=== PATIENT | male | born 1970 | race Caucasian/White ===

== ENCOUNTER 2017-09-26 16:49 | Inpatient (IN) | payer OTHER ==
[~2017-09-26] VITALS: Ht 170.2 cm; Wt 79.4 kg
[2017-09-26] MEDS ORDERED: Z GUARD REMEDY PASTE 57 GM TUBE TOP PRN (17:00)
[2017-09-26] MEDS ORDERED: ACETAMINOPHEN 325 MG TABLET PO PRN (17:00)
[2017-09-26 17:27] VITALS: BP 123/80
[2017-09-26] MEDS ORDERED: ASPI-612 PO (17:43)
[2017-09-26] MEDS ORDERED: VALS80TA2 PO (17:43)
[2017-09-26] MEDS ORDERED: BLOO-668 IN (17:43)
[2017-09-26] MEDS ORDERED: METF500T6 PO (17:43)
[2017-09-26] MEDS ORDERED: PRAZ1CAP5 PO (17:43)
[2017-09-26] MEDS ORDERED: HYDR-3980 PO (17:43)
[2017-09-26] MEDS ORDERED: MECL12.582 PO (17:43)
[2017-09-26] MEDS ORDERED: ATOR10TA PO (17:44)
[2017-09-26] MEDS ORDERED: AMLO10TA2 PO (17:44)
[2017-09-26 20:13] VITALS: BP 125/79
[2017-09-26] MEDS: HYDROCODONE/APAP 10-325 MG TABLET PO PRN (20:40)
[2017-09-26] MEDS: ATORVASTATIN 10 MG TABLET PO SCH (21:00)
[2017-09-26] MEDS: DOCUSATE SODIUM 100 MG CAPSULE PO SCH (21:00)
[2017-09-26] MEDS: BLOOD SUGAR DIAGNOSTIC 1 EACH STRIP VI SCH (22:22)
[2017-09-26] MEDS ORDERED: PRAZOSIN HCL 1 MG CAPSULE ONE (23:01)
[2017-09-26] MEDS: PRAZOSIN HCL 1 MG CAPSULE PO SCH (23:13)
[2017-09-27] MEDS ORDERED: MECLIZINE HCL 12.5 MG TABLET PO SCH
[2017-09-27] MEDS: HYDROCODONE/APAP 10-325 MG TABLET PO PRN ×3 (04:17→23:48)
[2017-09-27] MEDS: BLOOD SUGAR DIAGNOSTIC 1 EACH STRIP VI SCH ×4 (06:48→21:16)
[2017-09-27 06:55] VITALS: BP 113/75
[2017-09-27 06:56] LABS: BASOPHILS % (AUTO) 0.5 % (0.0-2.0); EOSINOPHILS # (AUTO) 0.1 K/uL (0.0-0.7); EOSINOPHILS % (AUTO) 1.6 % (0.0-7.0); HEMATOCRIT 45.5 % (36.7-47.1); LYMPHOCYTES # (AUTO) 2.6 K/uL (20.0-40.0); LYMPHOCYTES % (AUTO) 34.6 % (20.5-51.5); MEAN CORPUSCULAR HEMOGLOBIN 22.6 uug (23.8-33.4); MEAN CORPUSCULAR HGB CONC 33 g/dL (32.5-36.3); MEAN CORPUSCULAR VOLUME 68.6 fL (73.0-96.2); MONOCYTES # (AUTO) 0.5 K/uL (2.0-10.0); MONOCYTES % (AUTO) 6.2 % (0.0-11.0); NEUTROPHILS # (AUTO) 4.2 K/uL (1.8-8.9); NEUTROPHILS % (AUTO) 57.1 % (38.5-71.5); PLATELET COUNT (AUTO) 315 K/uL (152-348); WHITE BLOOD COUNT (AUTO) 7.4 K/uL (3.6-10.2)
[2017-09-27 06:58] LABS: RED BLOOD CELL COUNT(AUTO) 6.63 MIL/uL (4.06-5.63)
[2017-09-27 07:07] LABS: CREATININE 0.8 mg/dL (0.6-1.3); MAGNESIUM 2.1 mg/dL (1.8-2.4); PHOSPHOROUS 4.2 mg/dL (2.5-4.9); POTASSIUM 3.8 mmol/L (3.5-5.1)
[2017-09-27 07:30] VITALS: BP 155/62
[2017-09-27] MEDS: METFORMIN HCL 500 MG TABLET PO SCH ×2 (08:12→17:08)
[2017-09-27] MEDS: AMLODIPINE 10 MG TABLET PO SCH (08:12)
[2017-09-27] MEDS: ASPIRIN 325 MG TABLET PO SCH (08:12)
[2017-09-27] MEDS: VALSARTAN 80 MG TABLET PO SCH (08:12)
[2017-09-27] MEDS: MECLIZINE HCL 12.5 MG TABLET PO PRN (09:47)
[2017-09-27 16:00] VITALS: BP 118/74
[2017-09-27] MEDS ORDERED: diphenhydrAMINE 25 MG CAP PO PRN (18:30)
[2017-09-27] MEDS: GABAPENTIN 100 MG CAPSULE PO SCH (19:00)
[2017-09-27 20:02] VITALS: BP 123/83
[2017-09-27] MEDS: PRAZOSIN HCL 1 MG CAPSULE PO SCH (20:52)
[2017-09-27] MEDS: DOCUSATE SODIUM 100 MG CAPSULE PO SCH (20:52)
[2017-09-27] MEDS: ATORVASTATIN 10 MG TABLET PO SCH (20:52)
[2017-09-28 05:45] VITALS: BP 129/78
[2017-09-28] MEDS: BLOOD SUGAR DIAGNOSTIC 1 EACH STRIP VI SCH ×4 (06:20→21:07)
[2017-09-28 08:00] VITALS: BP 117/78
[2017-09-28] MEDS: VALSARTAN 80 MG TABLET PO SCH (08:16)
[2017-09-28] MEDS: AMLODIPINE 10 MG TABLET PO SCH (08:16)
[2017-09-28] MEDS: GABAPENTIN 100 MG CAPSULE PO SCH (08:16)
[2017-09-28] MEDS: METFORMIN HCL 500 MG TABLET PO SCH ×2 (08:16→17:20)
[2017-09-28] MEDS: ASPIRIN 325 MG TABLET PO SCH (08:16)
[2017-09-28] MEDS: MECLIZINE HCL 12.5 MG TABLET PO PRN (08:18)
[2017-09-28] MEDS: FLUOXETINE HCL 20 MG CAPSULE PO SCH (13:55)
[2017-09-28] MEDS: ACETAMINOPHEN 325 MG TABLET PO SCH ×2 (13:55→21:05)
[2017-09-28 16:00] VITALS: BP 110/72
[2017-09-28 19:30] VITALS: BP 113/76
[2017-09-28] MEDS: DOCUSATE SODIUM 100 MG CAPSULE PO SCH (21:05)
[2017-09-28] MEDS: ATORVASTATIN 10 MG TABLET PO SCH (21:05)
[2017-09-28] MEDS: PRAZOSIN HCL 1 MG CAPSULE PO SCH (21:07)
[2017-09-29] MEDS: BLOOD SUGAR DIAGNOSTIC 1 EACH STRIP VI SCH ×4 (06:15→21:00)
[2017-09-29 06:31] VITALS: BP 130/82
[2017-09-29 08:00] VITALS: BP 122/73
[2017-09-29] MEDS: FLUOXETINE HCL 20 MG CAPSULE PO SCH (08:13)
[2017-09-29] MEDS: ASPIRIN 325 MG TABLET PO SCH (08:13)
[2017-09-29] MEDS: VALSARTAN 80 MG TABLET PO SCH (08:13)
[2017-09-29] MEDS: METFORMIN HCL 500 MG TABLET PO SCH ×2 (08:13→17:21)
[2017-09-29] MEDS: AMLODIPINE 10 MG TABLET PO SCH (08:13)
[2017-09-29] MEDS: ACETAMINOPHEN 325 MG TABLET PO SCH ×2 (08:13→21:56)
[2017-09-29 16:16] VITALS: BP 118/73
[2017-09-29] MEDS: HYDROCODONE/APAP 10-325 MG TABLET PO PRN (16:29)
[2017-09-29 19:30] VITALS: BP 107/74
[2017-09-29] MEDS: DOCUSATE SODIUM 100 MG CAPSULE PO SCH (21:00)
[2017-09-29] MEDS: PRAZOSIN HCL 1 MG CAPSULE PO SCH (21:00)
[2017-09-29] MEDS: ATORVASTATIN 10 MG TABLET PO SCH (21:56)
[2017-09-30 06:28] VITALS: BP 131/83
[2017-09-30] MEDS: BLOOD SUGAR DIAGNOSTIC 1 EACH STRIP VI SCH ×4 (06:50→21:34)
[2017-09-30 08:00] VITALS: BP 130/89
[2017-09-30] MEDS: ASPIRIN 325 MG TABLET PO SCH (08:16)
[2017-09-30] MEDS: METFORMIN HCL 500 MG TABLET PO SCH ×2 (08:16→17:19)
[2017-09-30] MEDS: FLUOXETINE HCL 20 MG CAPSULE PO SCH (08:17)
[2017-09-30] MEDS: AMLODIPINE 10 MG TABLET PO SCH (08:17)
[2017-09-30] MEDS: ACETAMINOPHEN 325 MG TABLET PO SCH ×2 (08:17→21:34)
[2017-09-30] MEDS: VALSARTAN 80 MG TABLET PO SCH (08:18)
[2017-09-30 16:08] VITALS: BP 118/75
[2017-09-30 19:32] VITALS: BP 122/78
[2017-09-30] MEDS: DOCUSATE SODIUM 100 MG CAPSULE PO SCH (21:33)
[2017-09-30] MEDS: ATORVASTATIN 10 MG TABLET PO SCH (21:34)
[2017-09-30] MEDS: PRAZOSIN HCL 1 MG CAPSULE PO SCH (21:34)
[2017-09-30] MEDS: ZOLPIDEM 5 MG TABLET PO PRN (21:35)
[2017-10-01 05:56] VITALS: BP 130/79
[2017-10-01] MEDS: BLOOD SUGAR DIAGNOSTIC 1 EACH STRIP VI SCH ×4 (06:18→20:30)
[2017-10-01] MEDS: ACETAMINOPHEN 325 MG TABLET PO SCH ×2 (08:12→20:25)
[2017-10-01] MEDS: VALSARTAN 80 MG TABLET PO SCH (08:12)
[2017-10-01] MEDS: AMLODIPINE 10 MG TABLET PO SCH (08:13)
[2017-10-01] MEDS: ASPIRIN 325 MG TABLET PO SCH (08:13)
[2017-10-01] MEDS: FLUOXETINE HCL 20 MG CAPSULE PO SCH (08:13)
[2017-10-01] MEDS: METFORMIN HCL 500 MG TABLET PO SCH ×2 (08:13→17:11)
[2017-10-01] MEDS: BISACODYL 5 MG TABLET.DR PO PRN (08:13)
[2017-10-01 08:27] VITALS: BP 125/75
[2017-10-01 09:09] LABS: PTT-LA 37.2 sec (0.0-51.9); THROMBIN TIME 16.6 sec (0.0-23.0)
[2017-10-01 10:09] LABS: LUPUS INTERPRETATION Comment: (.)
[2017-10-01 19:30] VITALS: BP 135/89
[2017-10-01] MEDS: DOCUSATE SODIUM 100 MG CAPSULE PO SCH (20:25)
[2017-10-01] MEDS: PRAZOSIN HCL 1 MG CAPSULE PO SCH (20:26)
[2017-10-01] MEDS: ATORVASTATIN 10 MG TABLET PO SCH (20:26)
[2017-10-02] MEDS: BLOOD SUGAR DIAGNOSTIC 1 EACH STRIP VI SCH ×4 (06:25→20:34)
[2017-10-02] MEDS: ASPIRIN 325 MG TABLET PO SCH (08:16)
[2017-10-02] MEDS: FLUOXETINE HCL 20 MG CAPSULE PO SCH (08:16)
[2017-10-02] MEDS: ACETAMINOPHEN 325 MG TABLET PO SCH ×2 (08:16→20:34)
[2017-10-02] MEDS: AMLODIPINE 10 MG TABLET PO SCH (08:17)
[2017-10-02] MEDS: METFORMIN HCL 500 MG TABLET PO SCH ×2 (08:18→16:41)
[2017-10-02] MEDS: VALSARTAN 80 MG TABLET PO SCH (08:18)
[2017-10-02 08:34] VITALS: BP 112/73
[2017-10-02] MEDS: BISACODYL 5 MG TABLET.DR PO PRN (09:22)
[2017-10-02 15:43] VITALS: BP 114/57
[2017-10-02] MEDS ORDERED: BISACODYL 10 MG SUPP.RECT RC PRN (18:15)
[2017-10-02 20:09] VITALS: BP 132/63
[2017-10-02 20:19] VITALS: BP 119/71
[2017-10-02] MEDS: DOCUSATE SODIUM 100 MG CAPSULE PO SCH (20:34)
[2017-10-02] MEDS: ATORVASTATIN 10 MG TABLET PO SCH (20:34)
[2017-10-02] MEDS: PRAZOSIN HCL 1 MG CAPSULE PO SCH (20:35)
[2017-10-03 05:27] VITALS: BP 116/67
[2017-10-03 08:03] LABS: BASOPHILS # (AUTO) 0.1 K/uL (0.0-8.0); EOSINOPHILS # (AUTO) 0.1 K/uL (0.0-0.7); EOSINOPHILS % (AUTO) 1.4 % (0.0-7.0); HEMATOCRIT 42.2 % (36.7-47.1); HEMOGLOBIN 13.8 g/dL (12.5-16.3); LYMPHOCYTES # (AUTO) 2.8 K/uL (20.0-40.0); MEAN CORPUSCULAR HEMOGLOBIN 22.4 uug (23.8-33.4); MEAN CORPUSCULAR HGB CONC 33 g/dL (32.5-36.3); MEAN CORPUSCULAR VOLUME 68.7 fL (73.0-96.2); MONOCYTES # (AUTO) 0.5 K/uL (2.0-10.0); NEUTROPHILS # (AUTO) 3.5 K/uL (1.8-8.9); NEUTROPHILS % (AUTO) 49.6 % (38.5-71.5); PLATELET COUNT (AUTO) 279 K/uL (152-348); RED BLOOD CELL COUNT(AUTO) 6.15 MIL/uL (4.06-5.63)
[2017-10-03] MEDS: ASPIRIN 325 MG TABLET PO SCH (08:19)
[2017-10-03] MEDS: FLUOXETINE HCL 20 MG CAPSULE PO SCH (08:20)
[2017-10-03] MEDS: ACETAMINOPHEN 325 MG TABLET PO SCH ×2 (08:20→20:33)
[2017-10-03] MEDS: METFORMIN HCL 500 MG TABLET PO SCH ×2 (08:20→17:07)
[2017-10-03] MEDS: VALSARTAN 80 MG TABLET PO SCH (08:20)
[2017-10-03] MEDS: AMLODIPINE 10 MG TABLET PO SCH (08:20)
[2017-10-03] MEDS: SENNOSIDES 1 TABLET PO SCH (08:21)
[2017-10-03 08:28] VITALS: BP 117/71
[2017-10-03 08:32] LABS: THYROID STIMULATING HORMONE 1.387 mIU/mL (0.358-3.740)
[2017-10-03 08:54] LABS: BILIRUBIN,TOTAL 0.5 mg/dL (0.2-1.0); CREATININE 0.7 mg/dL (0.6-1.3); POTASSIUM 4.1 mmol/L (3.5-5.1); TOTAL PROTEIN, SERUM 7.8 g/dL (6.4-8.2)
[2017-10-03 20:17] VITALS: BP 122/79
[2017-10-03] MEDS: DOCUSATE SODIUM 100 MG CAPSULE PO SCH (20:33)
[2017-10-03] MEDS: PRAZOSIN HCL 1 MG CAPSULE PO SCH (20:34)
[2017-10-03] MEDS: ATORVASTATIN 10 MG TABLET PO SCH (20:34)
[2017-10-04 05:52] VITALS: BP 123/80
[2017-10-04 07:33] VITALS: BP 127/81
[2017-10-04] MEDS: METFORMIN HCL 500 MG TABLET PO SCH ×2 (08:35→16:43)
[2017-10-04] MEDS: FLUOXETINE HCL 20 MG CAPSULE PO SCH (08:35)
[2017-10-04] MEDS: SENNOSIDES 1 TABLET PO SCH (08:36)
[2017-10-04] MEDS: AMLODIPINE 10 MG TABLET PO SCH (08:36)
[2017-10-04] MEDS: ACETAMINOPHEN 325 MG TABLET PO SCH ×2 (08:36→20:25)
[2017-10-04] MEDS: ASPIRIN 325 MG TABLET PO SCH (08:37)
[2017-10-04] MEDS: VALSARTAN 80 MG TABLET PO SCH (08:37)
[2017-10-04 15:11] VITALS: BP 116/74
[2017-10-04] MEDS: POLYVINYL ALCOHOL OPHT DROPS 15 ML BOTTLE EACHEYE PRN (18:21)
[2017-10-04] MEDS: ATORVASTATIN 10 MG TABLET PO SCH (20:25)
[2017-10-04] MEDS: DOCUSATE SODIUM 100 MG CAPSULE PO SCH (20:25)
[2017-10-04 20:26] VITALS: BP 120/74
[2017-10-04] MEDS: PRAZOSIN HCL 1 MG CAPSULE PO SCH (20:26)
[2017-10-04] MEDS: ZOLPIDEM 5 MG TABLET PO PRN (20:48)
[2017-10-05 05:59] VITALS: BP 119/71
[2017-10-05 08:00] VITALS: BP 136/84
[2017-10-05] MEDS: ACETAMINOPHEN 325 MG TABLET PO SCH ×2 (08:28→21:00)
[2017-10-05] MEDS: ASPIRIN 325 MG TABLET PO SCH (08:28)
[2017-10-05] MEDS: METFORMIN HCL 500 MG TABLET PO SCH ×2 (08:28→17:34)
[2017-10-05] MEDS: SENNOSIDES 1 TABLET PO SCH (08:28)
[2017-10-05] MEDS: VALSARTAN 80 MG TABLET PO SCH (08:28)
[2017-10-05] MEDS: FLUOXETINE HCL 20 MG CAPSULE PO SCH (08:28)
[2017-10-05] MEDS: AMLODIPINE 10 MG TABLET PO SCH (08:29)
[2017-10-05 16:10] VITALS: BP 124/72
[2017-10-05 19:30] VITALS: BP 108/63
[2017-10-05] MEDS: DOCUSATE SODIUM 100 MG CAPSULE PO SCH (21:00)
[2017-10-05] MEDS: ATORVASTATIN 10 MG TABLET PO SCH (21:29)
[2017-10-05] MEDS: PRAZOSIN HCL 1 MG CAPSULE PO SCH (21:31)
[2017-10-05] MEDS: ZOLPIDEM 5 MG TABLET PO PRN (23:08)
[2017-10-06 08:19] VITALS: BP 120/69
[2017-10-06] MEDS: FLUOXETINE HCL 20 MG CAPSULE PO SCH (08:54)
[2017-10-06] MEDS: VALSARTAN 80 MG TABLET PO SCH (08:54)
[2017-10-06] MEDS: ASPIRIN 325 MG TABLET PO SCH (08:55)
[2017-10-06] MEDS: POLYVINYL ALCOHOL OPHT DROPS 15 ML BOTTLE EACHEYE PRN (08:55)
[2017-10-06] MEDS: METFORMIN HCL 500 MG TABLET PO SCH ×2 (08:55→17:52)
[2017-10-06] MEDS: SENNOSIDES 1 TABLET PO SCH (08:55)
[2017-10-06] MEDS: AMLODIPINE 10 MG TABLET PO SCH (08:55)
[2017-10-06] MEDS: ACETAMINOPHEN 325 MG TABLET PO SCH ×2 (08:55→21:00)
[2017-10-06 16:31] VITALS: BP 96/60
[2017-10-06 19:30] VITALS: BP 138/86
[2017-10-06] MEDS: DOCUSATE SODIUM 100 MG CAPSULE PO SCH (21:18)
[2017-10-06] MEDS: ATORVASTATIN 10 MG TABLET PO SCH (21:18)
[2017-10-06] MEDS: PRAZOSIN HCL 1 MG CAPSULE PO SCH (21:18)
[2017-10-06] MEDS: ZOLPIDEM 5 MG TABLET PO PRN (21:21)
[2017-10-07 07:09] VITALS: BP 112/66
[2017-10-07] MEDS: FLUOXETINE HCL 20 MG CAPSULE PO SCH (08:44)
[2017-10-07] MEDS: ASPIRIN 325 MG TABLET PO SCH (08:44)
[2017-10-07] MEDS: ACETAMINOPHEN 325 MG TABLET PO SCH ×2 (08:44→20:29)
[2017-10-07] MEDS: SENNOSIDES 1 TABLET PO SCH (08:44)
[2017-10-07] MEDS: METFORMIN HCL 500 MG TABLET PO SCH ×2 (08:44→17:32)
[2017-10-07] MEDS: AMLODIPINE 10 MG TABLET PO SCH (08:45)
[2017-10-07] MEDS: VALSARTAN 80 MG TABLET PO SCH (08:45)
[2017-10-07 16:11] VITALS: BP 121/77
[2017-10-07 19:30] VITALS: BP 117/72
[2017-10-07] MEDS: DOCUSATE SODIUM 100 MG CAPSULE PO SCH (20:29)
[2017-10-07] MEDS: ATORVASTATIN 10 MG TABLET PO SCH (20:29)
[2017-10-07] MEDS: PRAZOSIN HCL 1 MG CAPSULE PO SCH (20:30)
[2017-10-08 08:28] VITALS: BP 108/80
[2017-10-08] MEDS: SENNOSIDES 1 TABLET PO SCH (08:34)
[2017-10-08] MEDS: ACETAMINOPHEN 325 MG TABLET PO SCH ×2 (08:34→20:21)
[2017-10-08] MEDS: ASPIRIN 325 MG TABLET PO SCH (08:35)
[2017-10-08] MEDS: VALSARTAN 80 MG TABLET PO SCH (08:35)
[2017-10-08] MEDS: AMLODIPINE 10 MG TABLET PO SCH (08:35)
[2017-10-08] MEDS: FLUOXETINE HCL 20 MG CAPSULE PO SCH (08:35)
[2017-10-08] MEDS: METFORMIN HCL 500 MG TABLET PO SCH ×2 (08:35→17:23)
[2017-10-08 19:30] VITALS: BP 107/66
[2017-10-08] MEDS: DOCUSATE SODIUM 100 MG CAPSULE PO SCH (20:20)
[2017-10-08] MEDS: ATORVASTATIN 10 MG TABLET PO SCH (20:20)
[2017-10-08] MEDS: PRAZOSIN HCL 1 MG CAPSULE PO SCH (21:00)
[2017-10-08 22:15] VITALS: BP 113/61
[2017-10-08] MEDS: ZOLPIDEM 5 MG TABLET PO PRN (22:54)
[2017-10-09] MEDS: ACETAMINOPHEN 325 MG TABLET PO SCH ×2 (08:23→20:48)
[2017-10-09] MEDS: METFORMIN HCL 500 MG TABLET PO SCH ×2 (08:23→17:05)
[2017-10-09] MEDS: ASPIRIN 325 MG TABLET PO SCH (08:23)
[2017-10-09] MEDS: VALSARTAN 80 MG TABLET PO SCH (08:23)
[2017-10-09] MEDS: FLUOXETINE HCL 20 MG CAPSULE PO SCH (08:23)
[2017-10-09] MEDS: AMLODIPINE 10 MG TABLET PO SCH (08:24)
[2017-10-09] MEDS: SENNOSIDES 1 TABLET PO SCH (08:28)
[2017-10-09 08:38] VITALS: BP 121/66
[2017-10-09 20:23] VITALS: BP 108/70
[2017-10-09] MEDS: ATORVASTATIN 10 MG TABLET PO SCH (20:48)
[2017-10-09] MEDS: PRAZOSIN HCL 1 MG CAPSULE PO SCH (20:51)
[2017-10-09] MEDS: DOCUSATE SODIUM 100 MG CAPSULE PO SCH (20:51)
[2017-10-10 05:12] VITALS: BP 130/73
[2017-10-10 08:15] VITALS: BP 136/82
[2017-10-10] MEDS: METFORMIN HCL 500 MG TABLET PO SCH ×2 (08:40→17:24)
[2017-10-10] MEDS: FLUOXETINE HCL 20 MG CAPSULE PO SCH (08:40)
[2017-10-10] MEDS: ASPIRIN 325 MG TABLET PO SCH (08:40)
[2017-10-10] MEDS: ACETAMINOPHEN 325 MG TABLET PO SCH ×2 (08:40→20:31)
[2017-10-10] MEDS: AMLODIPINE 10 MG TABLET PO SCH (08:41)
[2017-10-10] MEDS: VALSARTAN 80 MG TABLET PO SCH (08:41)
[2017-10-10] MEDS: SENNOSIDES 1 TABLET PO SCH (08:41)
[2017-10-10 20:07] VITALS: BP 111/65
[2017-10-10] MEDS: ATORVASTATIN 10 MG TABLET PO SCH (20:31)
[2017-10-10] MEDS: PRAZOSIN HCL 1 MG CAPSULE PO SCH (20:32)
[2017-10-10] MEDS: DOCUSATE SODIUM 100 MG CAPSULE PO SCH (20:54)
[2017-10-11 05:28] VITALS: BP 117/77
[2017-10-11 08:00] VITALS: BP 110/69
[2017-10-11] MEDS: METFORMIN HCL 500 MG TABLET PO SCH ×2 (08:57→17:11)
[2017-10-11] MEDS: ASPIRIN 325 MG TABLET PO SCH (08:57)
[2017-10-11] MEDS: VALSARTAN 80 MG TABLET PO SCH (08:58)
[2017-10-11] MEDS: ACETAMINOPHEN 325 MG TABLET PO SCH ×2 (08:59→20:40)
[2017-10-11] MEDS: AMLODIPINE 10 MG TABLET PO SCH (08:59)
[2017-10-11] MEDS: SENNOSIDES 1 TABLET PO SCH (08:59)
[2017-10-11] MEDS: FLUOXETINE HCL 20 MG CAPSULE PO SCH (08:59)
[2017-10-11 15:57] VITALS: BP 112/72
[2017-10-11 19:30] VITALS: BP 118/59
[2017-10-11] MEDS: PRAZOSIN HCL 1 MG CAPSULE PO SCH (20:41)
[2017-10-11] MEDS: ATORVASTATIN 10 MG TABLET PO SCH (20:41)
[2017-10-11] MEDS: DOCUSATE SODIUM 100 MG CAPSULE PO SCH (20:43)
[2017-10-12 07:00] VITALS: BP 112/64
[2017-10-12] MEDS: AMLODIPINE 10 MG TABLET PO SCH (08:04)
[2017-10-12] MEDS: VALSARTAN 80 MG TABLET PO SCH (08:04)
[2017-10-12] MEDS: METFORMIN HCL 500 MG TABLET PO SCH ×2 (08:04→17:21)
[2017-10-12] MEDS: SENNOSIDES 1 TABLET PO SCH (08:04)
[2017-10-12] MEDS: FLUOXETINE HCL 20 MG CAPSULE PO SCH (08:05)
[2017-10-12] MEDS: ACETAMINOPHEN 325 MG TABLET PO SCH ×2 (08:05→21:19)
[2017-10-12] MEDS: ASPIRIN 325 MG TABLET PO SCH (08:05)
[2017-10-12 09:30] VITALS: BP 101/59
[2017-10-12 16:05] VITALS: BP 111/73
[2017-10-12 20:00] VITALS: BP 126/76
[2017-10-12] MEDS: ATORVASTATIN 10 MG TABLET PO SCH (21:18)
[2017-10-12] MEDS: DOCUSATE SODIUM 100 MG CAPSULE PO SCH (21:18)
[2017-10-12] MEDS: PRAZOSIN HCL 1 MG CAPSULE PO SCH (21:18)
[2017-10-12] MEDS: ZOLPIDEM 5 MG TABLET PO PRN (21:19)
[2017-10-13] MEDS: FLUOXETINE HCL 20 MG CAPSULE PO SCH (08:17)
[2017-10-13] MEDS: AMLODIPINE 10 MG TABLET PO SCH (08:21)
[2017-10-13] MEDS: SENNOSIDES 1 TABLET PO SCH (08:22)
[2017-10-13] MEDS: ACETAMINOPHEN 325 MG TABLET PO SCH ×2 (08:23→20:57)
[2017-10-13 08:24] VITALS: BP 114/60
[2017-10-13] MEDS: ASPIRIN 325 MG TABLET PO SCH (08:24)
[2017-10-13] MEDS: METFORMIN HCL 500 MG TABLET PO SCH ×2 (08:24→17:45)
[2017-10-13] MEDS: VALSARTAN 80 MG TABLET PO SCH (08:24)
[2017-10-13 16:30] VITALS: BP 120/67
[2017-10-13 19:43] VITALS: BP 109/62
[2017-10-13] MEDS: DOCUSATE SODIUM 100 MG CAPSULE PO SCH ×3 (20:57→21:01)
[2017-10-13] MEDS: ATORVASTATIN 10 MG TABLET PO SCH (20:57)
[2017-10-13] MEDS: PRAZOSIN HCL 1 MG CAPSULE PO SCH (20:59)
[2017-10-14 05:00] VITALS: BP 108/64
[2017-10-14] MEDS: METFORMIN HCL 500 MG TABLET PO SCH ×2 (08:13→17:09)
[2017-10-14] MEDS: ACETAMINOPHEN 325 MG TABLET PO SCH ×2 (08:14→20:29)
[2017-10-14] MEDS: VALSARTAN 80 MG TABLET PO SCH (08:14)
[2017-10-14] MEDS: ASPIRIN 325 MG TABLET PO SCH (08:14)
[2017-10-14] MEDS: SENNOSIDES 1 TABLET PO SCH (08:15)
[2017-10-14] MEDS: AMLODIPINE 10 MG TABLET PO SCH (08:15)
[2017-10-14] MEDS: FLUOXETINE HCL 20 MG CAPSULE PO SCH (08:15)
[2017-10-14 08:36] VITALS: BP 121/78
[2017-10-14] MEDS: ATORVASTATIN 10 MG TABLET PO SCH (20:29)
[2017-10-14] MEDS: PRAZOSIN HCL 1 MG CAPSULE PO SCH (20:29)
[2017-10-14 21:43] VITALS: BP 109/70
[2017-10-15 06:50] VITALS: BP 108/59
[2017-10-15 08:07] VITALS: BP 116/67
[2017-10-15] MEDS: ACETAMINOPHEN 325 MG TABLET PO SCH (08:27)
[2017-10-15] MEDS: AMLODIPINE 10 MG TABLET PO SCH (08:28)
[2017-10-15] MEDS: FLUOXETINE HCL 20 MG CAPSULE PO SCH (08:28)
[2017-10-15] MEDS: ASPIRIN 325 MG TABLET PO SCH (08:28)
[2017-10-15] MEDS: METFORMIN HCL 500 MG TABLET PO SCH ×2 (08:28→17:23)
[2017-10-15] MEDS: SENNOSIDES 1 TABLET PO SCH (08:28)
[2017-10-15] MEDS: VALSARTAN 80 MG TABLET PO SCH (08:28)
[2017-10-15 15:00] VITALS: BP 105/56
[2017-10-15 19:30] VITALS: BP 108/65
[2017-10-15] MEDS: PRAZOSIN HCL 1 MG CAPSULE PO SCH (21:00)
[2017-10-15] MEDS: DOCUSATE SODIUM 100 MG CAPSULE PO SCH (21:00)
[2017-10-15] MEDS: ATORVASTATIN 10 MG TABLET PO SCH (21:41)
[2017-10-15] MEDS: ZOLPIDEM 5 MG TABLET PO PRN (22:34)
[2017-10-16] MEDS: ASPIRIN 325 MG TABLET PO SCH (08:17)
[2017-10-16] MEDS: METFORMIN HCL 500 MG TABLET PO SCH ×2 (08:18→17:25)
[2017-10-16] MEDS: VALSARTAN 80 MG TABLET PO SCH (08:18)
[2017-10-16] MEDS: FLUOXETINE HCL 20 MG CAPSULE PO SCH (08:18)
[2017-10-16] MEDS: SENNOSIDES 1 TABLET PO SCH (08:18)
[2017-10-16] MEDS: AMLODIPINE 10 MG TABLET PO SCH (08:18)
[2017-10-16 08:39] VITALS: BP 114/62
[2017-10-16 15:45] VITALS: BP 109/72
[2017-10-16] MEDS: DOCUSATE SODIUM 100 MG CAPSULE PO SCH (21:00)
[2017-10-16] MEDS: PRAZOSIN HCL 1 MG CAPSULE PO SCH (21:13)
[2017-10-16] MEDS: ATORVASTATIN 10 MG TABLET PO SCH (21:14)
[2017-10-16] MEDS: ZOLPIDEM 5 MG TABLET PO PRN (21:14)
[2017-10-16 21:20] VITALS: BP 105/60
[2017-10-17 05:03] VITALS: BP 121/78
[2017-10-17 08:00] VITALS: BP 117/83
[2017-10-17] MEDS: FLUOXETINE HCL 20 MG CAPSULE PO SCH (08:16)
[2017-10-17] MEDS: METFORMIN HCL 500 MG TABLET PO SCH ×2 (08:16→17:05)
[2017-10-17] MEDS: ASPIRIN 325 MG TABLET PO SCH (08:16)
[2017-10-17] MEDS: VALSARTAN 80 MG TABLET PO SCH (08:17)
[2017-10-17] MEDS: AMLODIPINE 10 MG TABLET PO SCH (08:17)
[2017-10-17] MEDS: SENNOSIDES 1 TABLET PO SCH (08:17)
[2017-10-17 19:23] VITALS: BP 112/67
[2017-10-17 20:30] VITALS: BP 101/58
[2017-10-17] MEDS: DOCUSATE SODIUM 100 MG CAPSULE PO SCH (21:00)
[2017-10-17] MEDS: ZOLPIDEM 5 MG TABLET PO PRN (21:26)
[2017-10-17] MEDS: ATORVASTATIN 10 MG TABLET PO SCH (21:26)
[2017-10-17] MEDS: PRAZOSIN HCL 1 MG CAPSULE PO SCH (21:29)
[2017-10-18 05:30] VITALS: BP 104/61
[2017-10-18 07:43] VITALS: BP 103/61
[2017-10-18] MEDS: ASPIRIN 325 MG TABLET PO SCH (08:40)
[2017-10-18] MEDS: AMLODIPINE 10 MG TABLET PO SCH (08:40)
[2017-10-18] MEDS: VALSARTAN 80 MG TABLET PO SCH (08:40)
[2017-10-18] MEDS: METFORMIN HCL 500 MG TABLET PO SCH ×2 (08:40→17:06)
[2017-10-18] MEDS: FLUOXETINE HCL 20 MG CAPSULE PO SCH (08:40)
[2017-10-18] MEDS: SENNOSIDES 1 TABLET PO SCH (08:40)
[2017-10-18 15:44] VITALS: BP 113/58
[2017-10-18 20:21] VITALS: BP 113/68
[2017-10-18] MEDS: DOCUSATE SODIUM 100 MG CAPSULE PO SCH (21:00)
[2017-10-18] MEDS: PRAZOSIN HCL 1 MG CAPSULE PO SCH (21:16)
[2017-10-18] MEDS: ATORVASTATIN 10 MG TABLET PO SCH (21:17)
[2017-10-18] MEDS: ACETAMINOPHEN 325 MG TABLET PO PRN (21:17)
[2017-10-18] MEDS: ZOLPIDEM 5 MG TABLET PO PRN (21:18)
[2017-10-19 05:58] VITALS: BP 113/63
[2017-10-19] MEDS: AMLODIPINE 10 MG TABLET PO SCH (08:27)
[2017-10-19] MEDS: ASPIRIN 325 MG TABLET PO SCH (08:27)
[2017-10-19] MEDS: METFORMIN HCL 500 MG TABLET PO SCH ×2 (08:27→17:52)
[2017-10-19] MEDS: FLUOXETINE HCL 20 MG CAPSULE PO SCH (08:27)
[2017-10-19] MEDS: SENNOSIDES 1 TABLET PO SCH (08:27)
[2017-10-19] MEDS: ACETAMINOPHEN 325 MG TABLET PO PRN (08:27)
[2017-10-19] MEDS: VALSARTAN 80 MG TABLET PO SCH (08:28)
[2017-10-19 08:49] VITALS: BP 117/63
[2017-10-19 20:22] VITALS: BP 119/77
[2017-10-19] MEDS: PRAZOSIN HCL 1 MG CAPSULE PO SCH (20:38)
[2017-10-19] MEDS: ATORVASTATIN 10 MG TABLET PO SCH (20:38)
[2017-10-19] MEDS: ZOLPIDEM 5 MG TABLET PO PRN (20:39)
[2017-10-19] MEDS: DOCUSATE SODIUM 100 MG CAPSULE PO SCH (20:40)
[2017-10-20 08:00] VITALS: BP 119/68
[2017-10-20 08:24] VITALS: BP 119/68
[2017-10-20] MEDS: AMLODIPINE 10 MG TABLET PO SCH (08:24)
[2017-10-20] MEDS: ASPIRIN 325 MG TABLET PO SCH (08:24)
[2017-10-20] MEDS: METFORMIN HCL 500 MG TABLET PO SCH (08:24)
[2017-10-20] MEDS: VALSARTAN 80 MG TABLET PO SCH (08:24)
[2017-10-20] MEDS: FLUOXETINE HCL 20 MG CAPSULE PO SCH (08:24)
[2017-10-20] MEDS: SENNOSIDES 1 TABLET PO SCH (08:25)
== END 2017-10-20 13:31 | disposition home health service (06) | DRG 58 ==
PROVIDERS: ADMIT Physical Medicine & Rehabilitation Pain Medicine; ATTEND Physical Medicine & Rehabilitation Pain Medicine
DX: I69.354 Hemiplegia and hemiparesis following cerebral infarction affecting left non-dominant side (principal); D68.59 Other primary thrombophilia; E11.65 Type 2 diabetes mellitus with hyperglycemia; I69.392 Facial weakness following cerebral infarction; I69.398 Other sequelae of cerebral infarction; G62.89 Other specified polyneuropathies; I10 Essential (primary) hypertension; E66.9 Obesity, unspecified; Z68.27 Body mass index [BMI] 27.0-27.9, adult; E78.5 Hyperlipidemia, unspecified; Z79.82 Long term (current) use of aspirin; Z91.19 Patient's noncompliance with other medical treatment and regimen; M25.512 Pain in left shoulder; R71.8 Other abnormality of red blood cells; H53.2 Diplopia
CPT/HCPCS: 36415; 70030-TC; 70450; 83735; 84100; 84443; 85025; 85305; 85613; 86592; 87806; 92507; 92523; 97110; 97112; 97116; 97530; 97535; J8597